=== PATIENT | female | born 1990 | race Hispanic/Latino ===

== ENCOUNTER 2022-12-07 09:33 | Emergency (ER) | payer OTHER ==
[~2022-12-07] VITALS: Ht 152.4 cm; Wt 61.8 kg
[2022-12-07 09:39] VITALS: BP 117/70; PULSE 74; RESP 16
[2022-12-07 10:00] LABS: APPEARANCE,URINE CLOUDY (CLEAR); BILIRUBIN,URINE NEGATIVE (NEGATIVE); COLOR,URINE LIGHT-YELLOW (YELLOW); GLUCOSE, URINE (UA) NEGATIVE (NEGATIVE); KETONES,URINE NEGATIVE (NEGATIVE); LEUKOCYTE ESTERASE ,URINE 75 Leu/uL (NEGATIVE); NITRATE,URINE NEGATIVE (NEGATIVE); OCCULT BLOOD,URINE NEGATIVE (NEGATIVE); PROTEIN,URINE NEGATIVE (NEGATIVE); UROBILINOGEN,URINE 0.2 mg/dL (0.2-1.0)
[2022-12-07 10:11] LABS: SQUAMOUS EPITHELIAL CELL,UR MOD /HPF (0-2)
[2022-12-07 10:14] LABS: HCG,QUALITATIVE URINE NEGATIVE (NEGATIVE)
[2022-12-07 11:10] LABS: CARBON DIOXIDE 24 mmol/L (21-32); CHLORIDE 104 mmol/L (101-111); CREATININE 0.8 mg/dL (0.5-1.5); GLOMERULAR FILTR. RATE CALC 100 mL/min (>90); GLUCOSE,RANDOM 110 mg/dL (70-105); SODIUM SERUM 139 mmol/L (136-145); UREA NITROGEN, BLOOD 6 mg/dL (7-18)
[2022-12-07 11:14] LABS: BASOPHILS % (AUTO) 0.5 % (0.0-5.0); EOSINOPHILS % (AUTO) 1.2 % (0.0-8.0); HEMATOCRIT 36.4 % (36-48); LYMPHOCYTES % (AUTO) 11.5 % (21.0-51.0); MEAN CORPUSCULAR HEMOGLOBIN 23.4 pg (27.0-33.0); MEAN CORPUSCULAR VOLUME 75.5 fL (79-99); MONOCYTES % (AUTO) 3.5 % (3.0-13.0); NEUTROPHILS % (AUTO) 82.8 % (40.0-77.0); PLATELET COUNT (AUTO) 553 K/uL (130-400); RED BLOOD CELL COUNT(AUTO) 4.82 MIL/uL (4.00-5.50); RED CELL DISTRIBUTION WIDTH 15.9 % (11.0-15.5)
[2022-12-07 11:16] LABS: ALANINE AMINOTRANSFERASE 23 U/L (12-78); ALBUMIN 3.9 g/dL (3.5-5.0); ASPARTATE AMINOTRANSFERASE 23 U/L (10-37); TOTAL PROTEIN, SERUM 8.3 g/dL (6.0-8.3)
[2022-12-07 11:20] LABS: LIPASE < 50 U/L (114-286)
[2022-12-07] MEDS ORDERED: ONDANSETRON 4MG INJ IVP ONE (12:30)
[2022-12-07] MEDS ORDERED: 0.9%NACL 1000ML 1,000 ML IV ONE (12:30)
[2022-12-07] MEDS ORDERED: KETOROLAC 30MG VIAL (30MG/ML) IVP ONE (12:30)
[2022-12-07] MEDS ORDERED: ZOSYN 3.375GM +NS 50ML IVPB ONE (13:00)
[2022-12-07] MEDS ORDERED: FAMO20TA8 PO (13:28)
[2022-12-07] MEDS ORDERED: IBUP-2070 PO (13:28)
[2022-12-07] MEDS ORDERED: CEFD300C3 PO (13:29)
== END 2022-12-07 14:07 | disposition home or self-care (01) ==
LOC: EDH 09:33
DX: K80.50 Calculus of bile duct without cholangitis or cholecystitis without obstruction (principal); Z98.890 Other specified postprocedural states
CPT/HCPCS: 99285; 96365; 96375; 96366; 76705; 80053; 83690; 85025; 87088; 81001; 81025; 36415; J7030; J2405; J1885; J2543